=== PATIENT | male | born 1995 | race Caucasian/White ===

== ENCOUNTER 2016-12-07 19:46 | Emergency (ER) | payer SELFPAY ==
[2016-12-07 20:13] VITALS: TEMP 98.5; O2SAT 100
--- NOTE | 2016-12-07 20:58 | ED.PDOC ---
History of Present Illness - General Chief Complaint: Dental/Mouth Stated Complaint: toothache Time Seen by Provider: 12/07/16 20:55 Source: patient, RN notes reviewed, Vital Signs reviewed Exam Limitations: no limitations - History of Present Illness Initial Comments: Patient is a 21 y/o male who has severe pain in his upper left wisdom tooth. He has had pain in it before, but it would only hurt for about 20 minutes and it would stop. Today, it has been hurting for 5 hours. He has taken Ibuprofen and Tylenol which have helped a little, however, the pain is still severe. He denies any facial swelling. Timing/Duration: 4-6 hours Severity: moderate, severe Improving Factors: nothing Worsening Factors: eating Associated Symptoms: denies symptoms Allergies/Adverse Reactions: Allergies NO KNOWN ALLERGY Allergy (Verified 09/01/15 12:54) Home Medications: Ambulatory Orders Acetamin W/Cod #3 Tab [Tylenol #3 Tab] 1 ea PO Q4-6H PRN #10 tab 09/01/15 Clindamycin HCl 300 mg PO TID #21 cap 12/07/16 Gabapentin 300 mg PO TID PRN #15 cap 12/07/16 Review of Systems - Review of Systems Constitutional: States: no symptoms reported. Denies: fever EENTM: States: other - tooth pain Respiratory: States: no symptoms reported Cardiology: States: no symptoms reported Gastrointestinal/Abdominal: States: no symptoms reported Genitourinary: States: no symptoms reported Musculoskeletal: States: no symptoms reported Skin: States: no symptoms reported Neurological: States: no symptoms reported Endocrine: States: no symptoms reported Hematologic/Lymphatic: States: no symptoms reported All other Systems: Reviewed and Negative Past Medical History (General) - Patient Medical History Hx Seizures: No Hx Stroke: No Hx Dementia: No Hx Asthma: No Hx of COPD: No Hx Cardiac Disorders: No Hx Congestive Heart Failure: No Hx Pacemaker: No Hx Hypertension: No Hx Thyroid Disease: No Hx Diabetes: No Hx Gastroesophageal Reflux: No Hx Renal Disease: No Hx Cancer: No Hx of HIV: No Hx Hepatitis C: No Hx MRSA: No Surgical History: no surgical history - Vaccination History Hx Tetanus, Diphtheria Vaccination: No Hx Influenza Vaccination: No Hx Pneumococcal Vaccination: No Immunizations Up to Date: No - Social History Hx Tobacco Use: Yes Hx Chewing Tobacco Use: No Hx Alcohol Use: No Hx Substance Use: No Hx Substance Use Treatment: No Hx Depression: No Feels Threatened In Home Enviroment: No Feels Threatened In a Relationship: No Hx Physical Abuse: No Hx Emotional Abuse: No Hx Suspected Abuse: No Family Medical History - Family History Brother Family History: Unknown Physical Exam - Physical Exam General Appearance: Alert, Obvious distress Ears, Nose, Throat: hearing grossly normal, normal ENT inspection, normal pharynx, other - fracture of top left wisdom tooth with pain with palpation of tooth. No gingival abscess. Neck: non-tender, full range of motion, supple, normal inspection Respiratory: lungs clear, normal breath sounds, no respiratory distress, no accessory muscle use Cardiovascular/Chest: regular rate, rhythm, no edema, no gallop, no murmur Gastrointestinal/Abdominal: normal bowel sounds, non tender, soft, no organomegaly Extremity: normal range of motion, normal inspection Neurologic: alert, normal mood/affect, oriented x 3 Skin Exam: normal color, warm/dry Departure - Departure Clinical Impression: Acute pulpitis Time of Disposition: 21:00 Disposition: Discharge to Home or Self Care Condition: Fair Departure Forms: ED Discharge - Pt. Copy, Patient Portal Self Enrollment Instructions: Tooth Fracture, DI for Fractured Tooth Diet: resume usual diet Prescriptions: Clindamycin HCl 300 mg PO TID #21 cap Gabapentin 300 mg PO TID PRN #15 cap PRN Reason: Pain Home Medications: Ambulatory Orders Acetamin W/Cod #3 Tab [Tylenol #3 Tab] 1 ea PO Q4-6H PRN #10 tab 09/01/15 Clindamycin HCl 300 mg PO TID #21 cap 12/07/16 Gabapentin 300 mg PO TID PRN #15 cap 12/07/16 Additional Instructions: Call dentist in AM to schedule appointment. Follow up for any increasing swelling or fever.
[2016-12-07] MEDS ORDERED: GABAPENTIN 300 MG CAP PO ONE (20:59)
[2016-12-07] MEDS ORDERED: CLINDAMYCIN HCL CAP 150 MG CAP PO ONE (20:59)
[2016-12-07 21:49] VITALS: BP 122/73
== END 2016-12-07 21:49 | disposition home or self-care (01) ==
LOC: ER 19:46
DX: K04.01 Reversible pulpitis (principal); Z87.891 Personal history of nicotine dependence